=== PATIENT | female | born 1960 | race Caucasian/White ===

== ENCOUNTER 2017-06-27 07:18 | Day surgery (SDC) | payer BC ==
[2017-06-27] MEDS: NS 1,000 ML IV (07:30)
[2017-06-27] MEDS ORDERED: PROPOFOL 200 MG/20 ML VIAL As Ordered (08:38)
== END 2017-06-27 09:25 | disposition home or self-care (01) ==
LOC: M OPP 07:18
DX: Z12.11 Encounter for screening for malignant neoplasm of colon (principal); K64.0 First degree hemorrhoids; E03.9 Hypothyroidism, unspecified; G43.909 Migraine, unspecified, not intractable, without status migrainosus; Z89.421 Acquired absence of other right toe(s); Z88.0 Allergy status to penicillin; Z88.3 Allergy status to other anti-infective agents; Z88.1 Allergy status to other antibiotic agents; Z88.2 Allergy status to sulfonamides; Z79.899 Other long term (current) drug therapy; Z87.891 Personal history of nicotine dependence
CPT/HCPCS: G0121

== ENCOUNTER → 2020-04-02 | Outpatient (CLI) | payer SELFPAY ==
[~2020-04-02] MED LIST: MAGN250T6 PO; SYNT88TA2 PO; VITA500055 PO; VITATAB11 PO
== END ==
LOC: M LABSMTC 09:40
PROVIDERS: ATTEND Pediatrics
DX: Z20.828 Contact with and (suspected) exposure to other viral communicable diseases (principal)

== ENCOUNTER → 2020-04-13 | Outpatient (CLI) | payer SELFPAY | LOC: M LABSMTC 11:30 | PROVIDERS: ATTEND Pediatrics | DX: Z20.828 Contact with and (suspected) exposure to other viral communicable diseases (principal) ==

== ENCOUNTER → 2020-08-25 | Outpatient (CLI) | payer OTHER ==
--- NOTE | 2020-08-25 14:30 | REP ---
INDICATION: LBP, R/O HNP/STENOSIS. COMPARISON: None. TECHNIQUE: Sagittal and axial T1 and T2-weighted scans are acquired in the usual fashion with and without fat saturation. Sequences include spin echo, turbo spin-echo, and STIR imaging sequences. FINDINGS: Lumbar vertebral body heights are preserved. Alignment is normal. Cortical and medullary bone signal intensity are unremarkable. The tip of the conus medullaris is normal in position and appearance at L1. There is facet hypertrophy and or ligamentum flavum hypertrophy on the left side of the dorsal aspect of the thecal sac at the T11-T12 disc level noted incidentally at the top of the field of view on sagittal images. No cord compression is visible however. Axial and sagittal images at L1-L2 show no significant abnormality. At L2-3 there is mild degenerative disc narrowing and decreased signal intensity. No disc protrusion or central canal stenosis is seen. No foraminal narrowing is observed. At L3-4 there is mild narrowing of the disc. There is diffuse disc bulging which subtly indents the ventral margin of the thecal sac. There is no evidence of spinal stenosis, disc protrusion, or neural foraminal narrowing. At L4-5 there is mild diffuse disc bulging. There is ligamentum flavum hypertrophy and facet hypertrophy bilaterally at L4-5. The thecal sac has a somewhat triangular configuration and mild central canal narrowing is felt to be present. The midline AP dimension of the thecal sac at L4-5 is 11 mm. There is mild left-sided foraminal encroachment from facet hypertrophy. There is mild left-sided foraminal encroachment due to facet hypertrophy. At L5-S1 there is minimal diffuse disc bulging. Facet hypertrophy is present bilaterally. There is mild bilateral foraminal narrowing from facet hypertrophy at L5-S1. A sacral perineural cyst is noted incidentally. IMPRESSION: Mild degenerative spondylosis changes. There is mild central canal stenosis at L4-5 due to diffuse disc bulging, ligamentum flavum hypertrophy and facet hypertrophy. Mild neural foraminal narrowing as above. <Electronically signed by Dale Burton > 08/25/20 [id number]
== END ==
LOC: M PLARAD 11:57
PROVIDERS: ATTEND Physician Assistant
DX: M54.5 Low back pain (principal)

== ENCOUNTER → 2025-01-03 | Outpatient (CLI) | payer OTHER | LOC: M PLAIMG 08:55 | PROVIDERS: ATTEND Registered Nurse | DX: R94.31 Abnormal electrocardiogram [ECG] [EKG] (principal); I45.10 Unspecified right bundle-branch block ==